=== PATIENT | male | born 1985 | race Hispanic/Latino ===

== ENCOUNTER 2020-02-19 14:05 | Outpatient (CLI) | payer OTHER ==
--- NOTE | 2020-02-19 14:46 | RAD ---
PA AND LATERAL CHEST: Date: 02/19/2020 HISTORY: Pleuritic chest pain. FINDINGS: Heart size and mediastinum are within normal limits. Lungs appear clear of infiltrates. No significan t bony findings. IMPRESSION: No active intrathoracic disease. Stable chest as compared to 06/30/2013 study. POS: [facility]
== END 2020-02-19 14:06 | disposition home or self-care (01) ==
LOC: BICRAD 14:05
PROVIDERS: ATTEND Internal Medicine
DX: R07.1 Chest pain on breathing (principal)
CPT/HCPCS: 71046